=== PATIENT | male | born 1960 | race African-American/Black ===

== ENCOUNTER 2018-07-27 12:23 | Emergency (ER) | payer MEDICAID ==
[~2018-07-27] VITALS: Ht 188 cm; Wt 136.0 kg
[~2018-07-27 12:23] MED LIST: GLIP10TA10 PO; METF-414 PO
[2018-07-27 12:37] VITALS: BP 141/97
[2018-07-27] MEDS ORDERED: KETOROLAC 60MG/2ML VIAL IM ONE (13:30)
== END 2018-07-27 14:11 | disposition home or self-care (01) ==
LOC: ER 14:01
DX: M54.12 Radiculopathy, cervical region (principal); E11.9 Type 2 diabetes mellitus without complications; Z79.84 Long term (current) use of oral hypoglycemic drugs
CPT/HCPCS: 96372; 99283; J1885

== ENCOUNTER 2024-01-02 16:58 | Emergency (ER) | payer BC, MEDICAID ==
[~2024-01-02] VITALS: Ht 185.4 cm; Wt 132.0 kg
[~2024-01-02 16:58] MED LIST changes: +GABA-532 MT; +HYDR12.54 PO; +INSU100I24 SQ; +INSU100I49; +NIFE90TA60 PO; +TOPUD PO
[2024-01-02 17:27] VITALS: O2SAT 100
[2024-01-02 20:24] LABS: BASOPHILS % 0.5 % (0.0-2.0); EOSINOPHILS % 0.5 % (0.0-5.0); HEMOGLOBIN. 14.9 g/dL (14.0-18.0); LYMPHOCYTES % 22.6 % (20.0-50.0); MEAN CORPUSCULAR HEMOGLOBIN 32.1 pg (28.0-32.0); MEAN CORPUSCULAR HGB CONC 33.9 g/dL (31.0-37.0); MEAN CORPUSCULAR VOLUME 94.5 fL (80.0-94.0); MONOCYTES % 5.2 % (2.0-8.0); NEUTROPHILS % 71.2 % (40.0-76.0); PLATELET 401 x1000/uL (130-400); RED BLOOD CELL COUNT 4.66 mill/uL (4.7-6.1); RED CELL DISTRIBUTION WIDTH 13.1 % (11.6-14.6); WHITE BLOOD COUNT 13.1 x1000/uL (4.5-11.0)
[2024-01-02 20:37] LABS: ALANINE AMINOTRANSFERASE 24 IU/L (10-49); ALBUMIN 4.8 g/dL (3.2-4.8); ASPARTATE AMINOTRANSFERASE 21 IU/L (<34); BILIRUBIN TOTAL 0.7 mg/dL (0.1-1.0); CALCIUM 9.9 mg/dL (8.7-10.4); CARBON DIOXIDE 25 mEq/L (21-32); CHLORIDE 106 mEq/L (98-107); CREATININE 1.4 mg/dL (0.6-1.3); GLUCOSE 180 mg/dL (70-105); POTASSIUM 3.9 mEq/L (3.5-5.1); PROTEIN TOTAL 8.6 g/dL (6.0-8.3); SODIUM 139 mEq/L (136-145); UREA NITROGEN BLOOD 20 mg/dL (9-23)
[2024-01-02] MEDS: ACETAMINOPHEN 325MG TABLET PO STA (20:45)
[2024-01-02] MEDS: KETOROLAC 30MG/ML VIAL IM STA (20:48)
[2024-01-02 22:06] VITALS: BP 104/86; PULSE 100; RESP 20; TEMP 98.7
[2024-01-02] MEDS ORDERED: NAPR-681 PO (22:15)
[2024-01-02 23:21] LABS: CLARITY URINE CLEAR (CLEAR); COLOR URINE DARK YELLOW (YELLOW); GLUCOSE URINE NEGATIVE (NEGATIVE); KETONES URINE 1+ (NEGATIVE); LEUKOCYTE ESTERASE URINE NEGATIVE (NEGATIVE); NITRITE URINE NEGATIVE (NEGATIVE); OCCULT BLOOD URINE NEGATIVE (NEGATIVE); PROTEIN URINE 3+ (NEGATIVE); SPECIFIC GRAVITY URINE 1.035 (1.005-1.030)
[2024-01-02 23:36] LABS: BACTERIA URINE NONE SEEN; HYALINE CASTS URINE 0-5 /lpf; RBC URINE NONE SEEN /hpf (0-2); SQUAMOUS EPITHELIAL CELL URINE RARE /lpf (RARE/1+); WBC URINE NONE SEEN /hpf (0-2)
== END 2024-01-03 00:02 | disposition home or self-care (01) ==
LOC: ER 16:58
DX: M43.6 Torticollis (principal); E11.9 Type 2 diabetes mellitus without complications
CPT/HCPCS: 99285; 70450; 80053; 81003; 85025; 36415; 72125; 96372; J1885